=== PATIENT | female | born 1990 | race Caucasian/White ===

== ENCOUNTER 2016-10-19 16:01 | Emergency (ER) | payer MEDICAID ==
[2016-10-19 16:16] VITALS: BP 145/98
[2016-10-19] MEDS ORDERED: predniSONE 20 MG Tab PO STA (16:59)
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
== END 2016-10-19 17:20 | disposition home or self-care (01) ==
LOC: JD.ED 16:01
DX: M51.26 Other intervertebral disc displacement, lumbar region (principal); Z98.890 Other specified postprocedural states
CPT/HCPCS: 99283; A9270; 99282

== ENCOUNTER 2020-11-12 14:32 | Emergency (ER) | payer MEDICAID ==
[2020-11-12 14:47] VITALS: BP 136/84
[2020-11-12] MEDS ORDERED: Acetaminophen/HYDROcodone 325-5 MG Tab PO ONE (14:55)
--- NOTE | 2020-11-12 15:55 | CR ---
Right shoulder: 3 views of the right shoulder were obtained. Comparison: No prior shoulder study is available. Glenohumeral joint and acromioclavicular joint appear within normal limits. No fracture, dislocation or other bony abnormality is appreciated. Impression: 1. No abnormality is identified on right shoulder study. Diagnostic code #1
--- NOTE | 2020-11-12 15:55 | CR ---
Right wrist: 4 views of the right wrist were obtained. Comparison: No prior right wrist is available. Joint spaces are preserved. Mild soft tissue swelling is noted. Small lucent line is identified at the base of the radial styloid process. Difficult to completely exclude nondisplaced fracture. No additional bony abnormality is appreciated. Impression: 1. Soft tissue swelling. 2. Equivocal nondisplaced fracture involving the base of the radial styloid process. Diagnostic code #3
--- NOTE | 2020-11-12 15:59 | CR ---
Right femur: AP and lateral views of the right femur were obtained. Comparison: No prior femur study is available. Soft tissue swelling is noted over the right hip. No acute fracture, dislocation or other bony abnormality is appreciated. Impression: 1. Soft tissue swelling. 2. No bony abnormality is seen on right femur exam. Diagnostic code #2
--- NOTE | 2020-11-12 16:00 | CR ---
Left tibia and fibula: AP and lateral views of the left tibia and fibula were obtained. Comparison: No prior left tibia or fibula study is available. Soft tissue swelling is noted. No fracture or other bony abnormality is appreciated. Impression: 1. Soft tissue swelling. 2. No bony abnormality is appreciated. Diagnostic code #2
--- NOTE | 2020-11-12 16:00 | CR ---
Chest: 2 views of the chest were obtained. Comparison: No prior chest imaging is available. Nodular density is seen within the left upper lung which is fairly dense and is most likely a granuloma. Lungs otherwise are clear. Heart size and mediastinum are normal. Bony structures show nothing acute. Impression: 1. Possible granuloma within the left upper chest. 2. Nothing acute is otherwise seen on 2 chest x-ray. Diagnostic code #2
--- NOTE | 2020-11-12 16:00 | CR ---
Left foot: 3 views of the left foot were obtained. Comparison: No prior left foot study is available. Soft tissue swelling is noted. Joint spaces are preserved. Very small bony density is noted off the dorsal distal talus suspicious for small cortical fracture. No additional fracture or other bony abnormality is appreciated. Impression: 1. Findings suspicious for small cortical fracture off the anterior and dorsal talus. 2. Soft tissue swelling. 3. Other portions of the left foot study show no additional bony abnormality. Diagnostic code #3
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
[2020-11-12 16:36] VITALS: PULSE 88
== END 2020-11-12 17:50 | disposition home or self-care (01) ==
LOC: JD.ED 14:32
DX: S92.125A Nondisplaced fracture of body of left talus, initial encounter for closed fracture (principal); S52.591A Other fractures of lower end of right radius, initial encounter for closed fracture; V86.59XA Driver of other special all-terrain or other off-road motor vehicle injured in nontraffic accident, initial encounter
CPT/HCPCS: 71046; 73030; 73110; 73552; 73590; 73630; 99284; A9270